=== PATIENT | female | born 1935 | race Caucasian/White ===

== ENCOUNTER → 2017-01-17 | Outpatient (CLI) | payer OTHER, MEDICARE ==
[~2017-01-17] VITALS: Ht 160 cm; Wt 53.1 kg
[~2017-01-17] MED LIST: ADULT LOW DOSE81 MG PO; ALBUTEROL SULFAT2 MG PO; ASPIR 8181 MG PO; CALCIUM 1,0001 EACH PO; CELEBREX 200 M200 M1 PO; CELEBREX 200 M200 MG PO; EXCEDRIN CAPLE1 EACH PO; FISH OIL 1,0001 EAC8 PO; FOSAMAX 70 MG T70 M1 PO; LEVOTHYROXINE0.05 MG PO; LORTAB 5 MG/5001 TA1 PO; MAXZIDE-25 MG1 EACH PO; METAXALONE400 MG PO; MOBIC7.5 MG PO; MUCINEX D ER 11 EACH PO; MUCINEX TA600 MG/TA1 PO; MUCINEX1200 MG PO; MULTIVITAMINS1 EAC7 PO; NORCO 5-325 TA1 EACH PO; PEPCID40 MG PO; POTASSIUM20 PO; PROTONIX 20 MG20 M1 PO; RELAFEN500 MG PO; SINGULAIR 10 MG10 M1 PO; TAMSULOSIN HCL0.4 M1 PO; THEOPHYLLINE S200 M1 PO; TRIAMTERENE-HC1 EAC1 PO; VALIUM2 MG PO; XOPENEX0.31 MG/3 INH; ZANTAC 150MG T150 M1 PO; ZANTAC 150MG T150 MG PO
--- NOTE | ~2017-01-17 | P ---
[facility] [place] [address] PROCEDURE REPORT Name: MARLEEN DYKES Room #: REG [facility] MMalcom.#: [id number] Admission: 01/17/17 Attend Phys: Che Gallardo DO Discharge: Date of : 39 Report #: [id number] THIS REPORT FOR: //name// CC: Che Curry MD DATE OF SERVICE: 01/17/2017 PROCEDURE: Surveillance colonoscopy. INDICATION FOR PROCEDURE: The patient has a history of adenomatous polyps and sessile, serrated adenoma 9 mm in size in the transverse colon in 2013. DESCRIPTION OF PROCEDURE: Informed consent for this procedure was obtained prior to the administration of any medication. The risks of the procedure which include bleeding, perforation, infection, complications of sedation and the possibility I could miss something have been explained to the patient and she has indicated her consent by signing. Propofol was slowly titrated before and during this procedure for patient comfort by the anesthesia service and before the EGD that preceded it. Digital rectal exam was done and no abnormalities were palpated. Then, the Qonfn colonoscope was introduced through the anal sphincter and advanced under direct visualization to the terminal ileum. Findings are noted on withdrawal of the scope. The terminal ileal mucosa appears normal. Cecum, normal mucosa. Ascending colon, normal mucosa. Retroflex view in the ascending colon did not reveal any new abnormalities. Hepatic flexure, normal mucosa. Transverse colon, normal mucosa. Splenic flexure, normal mucosa. Descending colon, normal mucosa. Sigmoid colon, normal mucosa. Rectum, normal mucosa. Retroflex view in the rectum did not reveal any other abnormalities. The scope was withdrawn. The patient went to the recovery area in stable condition. She tolerated the procedure well. IMPRESSION: Normal colonoscopic exam to the terminal ileum. No sign of recurrent polyposis. RECOMMENDATIONS: Are for her to have a followup colonoscopy in approximately 5 years. She does have a history of a 9 mm sessile, serrated adenoma. Thank you very much once again for allowing me to participate in her care. <ELECTRONICALLY SIGNED> By: Che Gallardo DO 01/17/17 1549 1252 1448 Che Gallardo DO /nt
--- NOTE | ~2017-01-17 | S ---
[facility] [place] [address] SURGICAL PATH RPT PROCEDURE Name: MARLEEN HOLDER Room #: REG RIKY M.Wesley.#: [id number] Admission: 01/17/17 Date of : 39 Discharge: Report #: [id number] Path Case #: [id number] PATHOLOGY REPORT COLLECTION DATE: 01/17/2017 RECEIVED DATE: 01/17/2017 SUBMITTING PHYS: Dr. Che Gallardo OTHER PHYS: SPECIMEN(S) RECEIVED: A.Duodenum 2nd portion B.Random gastric * * * * * * * * * * * * FINAL DIAGNOSIS: A. "Duodenum second portion", biopsy: - Small bowel/duodenal mucosa with minimal histologic alteration; no evidence of celiac sprue. B. "Random gastric", biopsy: - Gastric mucosa with mild chronic active gastritis, minimal activity. - Negative H. pylori immunohistochemical stain (block B1); control reacted appropriately. (See comment) COMMENT: Within specimen B, the pattern of inflammation is suggestive of an H. pylori infection; however, no organisms are identified on immunohistochemical staining. Correlation with clinical history, endoscopic findings and additional laboratory data is recommended. (YVETTEW:sridevi; d/t: 01/18/2017) PATHOLOGIST: Richa Palumbo M.D. REPORT ELECTRONICALLY SIGNED BY: Richa Palumbo M.D. DATE/TIME: 01/18/2017 16:51 * * * * * * * * * * * * GROSS PATHOLOGY: A. Received in formalin labeled "Marleen Holder, second portion duodenum," is a segment of goodman soft tissue measuring 0.5 cm in maximum dimension. The specimen is submitted entirely in cassette A1. B. Received in formalin labeled "Marleen Holder random gastric," are 4 segments of goodman soft tissue measuring 0.5 x 0.4 x 0.3 cm in aggregate dimensions and ranging from 0.3 to 0.4 cm in maximum dimension. The specimen is submitted entirely in cassette B1. (KAH; 01/17/2017) [address] [address] SURGICAL PATH RPT PROCEDURE Name: MARLEEN HOLDER Room #: REG [facility].#: [id number] Admission: 01/17/17 Date of : 39 Discharge: Report #: [id number] Path Case #: [id number] CLINICAL HISTORY: Pre-op diagnosis: Epigastric pain Post-op diagnosis: Gastritis INITIAL CPT CODE(S): A; 18568 B; 31101, 12195 Professional services performed by [facility] at [address], [place] [address] Technical services performed by [facility] at [address] [place] [address], [facility] [address] [address]. [facility] [address] [place] [address] PHONE: [phone] DIRECTOR: Asaf Wood M.D. * * * END OF REPORT * * *
--- NOTE | ~2017-01-17 | P ---
[facility] [place] [address] PROCEDURE REPORT Name: MARLEEN DYKES Room #: REG [facility] M.Wesley.#: [id number] Admission: 01/17/17 Attend Phys: Che Gallardo DO Discharge: Date of : 39 Report #: [id number] THIS REPORT FOR: //name// CC: Che Curry MD DATE OF SERVICE: 01/17/2017 PROCEDURE: EGD with biopsies. She is patient of Dr. Julia Curry. CHIEF COMPLAINT: Epigastric and left upper quadrant pain relieved by food intake. DESCRIPTION OF PROCEDURE: Informed consent for this procedure was obtained prior to the administration of any medication. The risks of the procedure which include bleeding, perforation, infection, complications of sedation and the possibility I could miss something have been explained to the patient and she has indicated her consent by signing. Propofol was slowly titrated before and during this procedure and the colonoscopy that followed it. The Domositen upper videoscope was introduced through the upper esophageal sphincter and advanced under direct visualization to the descending duodenum. Findings are noted on withdrawal of the scope. The duodenal mucosa appears normal throughout its entirety. Biopsies are obtained to make sure she does not have celiac sprue. Pylorus, normal mucosa. Antrum, erythematous mucosa. Body, normal mucosa. Cardia and fundus, normal mucosa. Retroflex view did not reveal any hiatal hernia. Biopsies were obtained randomly x 4 from throughout the stomach for histopathology. Scope was withdrawn into the esophagus. The Z-line is appropriately located at the top of the gastric folds and appears normal. It is located at approximately 42 cm from the incisors. The esophageal mucosa appears normal throughout its entirety. The scope was withdrawn. The patient went to the recovery area in stable condition. She tolerated the procedure well. IMPRESSION: Distal gastric erythema. Other than that, normal esophagogastroduodenoscopy to descending duodenum, biopsies are pending. RECOMMENDATIONS: To await the biopsy results. She should continue on her proton pump inhibitors for now. We will proceed with colonoscopy. Thank you very much once again for allowing me to participate in her care, [address] [address] PROCEDURE REPORT Name: MARLEEN DYKES Room #: REG YVETTEBella Swann#: [id number] Admission: 01/17/17 Attend Phys: Che Gallardo DO Discharge: Date of : 37 Report #: [id number] [place]. 1. <ELECTRONICALLY SIGNED> By: Che Gallardo DO 01/17/17 1549 1252 1444 Che Gallardo DO /nt
== END ==
LOC: GI 10:30
DX: Z12.11 Encounter for screening for malignant neoplasm of colon (principal); Z86.010 Personal history of colon polyps; K29.50 Unspecified chronic gastritis without bleeding; I10 Essential (primary) hypertension; G47.33 Obstructive sleep apnea (adult) (pediatric); Z87.891 Personal history of nicotine dependence; E03.9 Hypothyroidism, unspecified
CPT/HCPCS: 62110; 62900

== ENCOUNTER → 2017-02-15 | Outpatient (CLI) | payer OTHER, MEDICARE | LOC: NUC 12:20 | DX: M81.0 Age-related osteoporosis without current pathological fracture (principal) ==

== ENCOUNTER → 2017-03-12 | Outpatient (CLI) | payer OTHER, MEDICARE ==
[~2017-03-12] VITALS: Ht 160 cm; Wt 55.8 kg
--- NOTE | ~2017-03-12 | HPC ---
[facility] [address] [place] [address] PAIN MANAGEMENT CONSULTATION Name: MARLEEN DYKES Room #: REG [facility]..#: [id number] Admission: 03/12/17 Attend Phys: Hari Fontaine DO Discharge: Date of : 37 Report #: [id number] THIS REPORT FOR: //name// CC: Julia Fontaine The patient is a delightful 81-year-old female typically treated for lumbosacral spondylosis, SI joint dysfunction. She has done well with occasional SI joint injections; she had two in 2014, one in August of 2016. Returns to the pain clinic today noting last injection afforded as usual 80% relief for many months, pain has gradually begun to recur. Pain is primarily in the low back, exacerbated with standing and bending. She notes still a lot of gardening, with weather changes, this spring, symptoms seems to have gotten a little bit worse, rates them 2-3 on a 0-10 visual analog scale presently, but notes pain more problematic with certain positions. PHYSICAL EXAMINATION: Shows pleasant 81-year-old female, BMI is 21.8 kilograms per meter squared. Vital signs stable as noted in the EMR. Rises from chair easily. Gait is tandem. Lower extremity strength is preserved. Very tender over the SI joints with positive Charly test, positive Gaenslen's and positive distraction. 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 RECOMMENDATION: Bilateral SI joint injection under fluoroscopy. Continue physical therapy, core strengthening, activity as able. Follow up as needed. PROCEDURE NOTE: Bilateral SI joint injection under fluoroscopy. PROCEDURE NOTE: After written and informed consent was obtained including risk of infection, nerve trauma, increased pain and weakness, the patient wishes to proceed. The patient was taken to the fluoroscopy suite, placed in the prone position. The sacroiliac joint was visualized using the C-arm, turned in an oblique fashion to align the joint. The skin overlying the area was cleansed with ChloraPrep. Skin wheal with Xylocaine was raised. A 22 gauge spinal needle was inserted into the inferior aspect of the joint. A low volume extension tubing was then attached to the needle after the stylet was removed. Negative aspiration was accomplished. A 1 mL of Omnipaque was injected which showed spread within the SI joint. 40 mg triamcinolone plus 2 mL of 0.5% preservative-free bupivacaine was injected into the joint. Needle was removed. Attention was then turned to the contralateral joint which was treated in an identical fashion. After both needles were removed the prep was washed off. Two Band-Aids were applied over the puncture sites. [place] [address] PAIN MANAGEMENT CONSULTATION Name: MARLEEN DYKES Room #: REG RIKY Swann#: [id number] Admission: 03/12/17 Attend Phys: Hari Fontaine DO Discharge: Date of : 39 Report #: [id number] ambulate to the recovery room, monitored for an appropriate period of time, discharged in good and stable condition. <ELECTRONICALLY SIGNED> By: Hari Fontaine DO 03/14/17 1252 1655 2251 Hari Fontaine DO /nt
[2017-03-12 14:20] VITALS: BP 155/80
== END ==
LOC: PAIN 06:47
DX: M53.3 Sacrococcygeal disorders, not elsewhere classified (principal); Z87.891 Personal history of nicotine dependence

== ENCOUNTER → 2017-04-09 | Outpatient (CLI) | payer OTHER, MEDICARE ==
[~2017-04-09] VITALS: Ht 160 cm; Wt 55.8 kg
[2017-04-09 10:44] VITALS: BP 154/8
== END | disposition home or self-care (01) ==
LOC: PAIN 06:42
DX: M79.1 Myalgia (principal); M47.897 Other spondylosis, lumbosacral region; M53.3 Sacrococcygeal disorders, not elsewhere classified; G89.29 Other chronic pain; Z87.891 Personal history of nicotine dependence; Z88.8 Allergy status to other drugs, medicaments and biological substances; Z79.82 Long term (current) use of aspirin

== ENCOUNTER → 2018-01-04 | Outpatient (CLI) | payer OTHER, MEDICARE ==
[~2018-01-04] VITALS: Ht 160 cm; Wt 55.9 kg
[~2018-01-04] MED LIST changes: +LIPITOR10 MG PO
--- NOTE | ~2018-01-04 | HPC ---
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 Last seen in pain clinic back in March. She has done well with occasional bilateral SI joint injections for SI mediated pain. She notes last injection has afforded good relief. Pain is beginning to recur across the low back, little bit into the buttocks. Does not radiate down to the legs. Pain is exacerbated with standing and bending. PHYSICAL EXAMINATION: Shows a pleasant 82-year-old female. BMI is approximately 20 kilograms per meter squared. Vital signs are stable as noted in the EMR. Rises from a chair using armrest. She has not fallen in the past 6 months. Gait is tandem. Lower extremity strength is generally preserved. Grossly positive Charly test bilaterally. Positive Gaenslen's test. Pelvic distraction is modestly positive. Skin integument is intact. ASSESSMENT: Sacroiliac joint dysfunction by clinical exam and history. RECOMMENDATIONS: Bilateral SI joint injection under fluoroscopy. Continue core exercises. Follow up as needed. PROCEDURE: Bilateral SI joint injection under fluoroscopy. PROCEDURE NOTE: After written and informed consent was obtained including risk of infection, nerve trauma, increased pain and weakness, the patient wishes to proceed. The patient was taken to the fluoroscopy suite, placed in the prone position. The sacroiliac joint was visualized using the C-arm, turned in an oblique fashion to align the joint. The skin overlying the area was cleansed with ChloraPrep. Skin wheal with Xylocaine was raised. A 22 gauge spinal needle was inserted into the inferior aspect of the joint. A low volume extension tubing was then attached to the needle after the stylet was removed. Negative aspiration was accomplished. A 1 mL of Omnipaque was injected which showed spread within the SI joint. 40 mg triamcinolone plus 2 mL of 0.5% preservative-free bupivacaine was injected into the joint. Needle was removed. Attention was then turned to the contralateral joint which was treated in an identical fashion. After both needles were removed the prep was washed off. Two Band-Aids were applied over the puncture sites. [place] [address] PAIN MANAGEMENT CONSULTATION Name: MARLEEN DYKES Room #: [facility] [id number] Admission: 01/04/18 Attend Phys: Hari Fontaine DO Discharge: Date of : 39 Report #: [id number] ambulate to the recovery room, monitored for an appropriate period of time, discharged in good and stable condition. <ELECTRONICALLY SIGNED> By: Hari Fontaine DO 01/07/18 0809 1451 1922 Hari Fontaine DO /nt
[2018-01-04 13:59] VITALS: BP 146/73
== END | disposition home or self-care (01) ==
LOC: PAIN 06:55
DX: M53.3 Sacrococcygeal disorders, not elsewhere classified (principal); Z87.891 Personal history of nicotine dependence

== ENCOUNTER → 2020-02-25 | Outpatient (CLI) | payer OTHER, MEDICARE ==
[~2020-02-25] VITALS: Ht 160 cm; Wt 50.8 kg
[~2020-02-25] MED LIST changes: -LEVOTHYROXINE0.05 MG PO; +NORVASC5 M1 PO; +PEPCID AC20 MG PO; +SYNTHROID50 MCG PO
--- NOTE | ~2020-02-25 | P ---
[facility] [place] [address] PROCEDURE REPORT Name: MARLEEN DYKES Room #: REG [facility]#: [id number] Admission: 02/25/20 Attend Phys: Zander Woodall Discharge: Date of : 39 Report #: [id number] THIS REPORT FOR: cc: Jluia Curry MD, Jennifer S. MD McElhinney, Christian C. MD ~ CC: Zander Curry MD DATE OF SERVICE: 02/25/2020 PROCEDURE PERFORMED: Colonoscopy with biopsies. HISTORY OF PRESENT ILLNESS: The patient is an 84-year-old female who underwent a Cologuard test recently that was positive. She denies any obvious bright red blood per rectum or melena. She denies any abdominal pain. She does have a family history of colon cancer in a grandmother and an aunt. DESCRIPTION OF PROCEDURE: The risks and benefits of the procedure were explained to the patient, those risks including but not limited to bleeding, perforation and the risk of sedation. She understood these risks and gave informed consent. Sedation was given using propofol per anesthesia. Next, a digital rectal exam was initially performed, which was normal. Next, using a standard Olympus colonoscope, the scope was placed in the patient's anus and advanced under direct vision to the cecum. The overall prep was good. The cecum and ileocecal valve were normal in appearance. Ascending colon, there was a 4 mm sessile polyp; this was removed with cold forceps, otherwise normal. Transverse colon was normal. A few scattered diverticula were noted in the descending and sigmoid colon, no evidence of inflammation, otherwise normal. The rectal mucosa was normal. On retroflexion, small nonbleeding internal hemorrhoids were noted, otherwise normal colonoscopy. The scope was then withdrawn and the procedure terminated. The patient tolerated the procedure well. IMPRESSION: 1. Small colonic polyp. 2. Small internal hemorrhoids. 3. Left-sided diverticulosis. RECOMMENDATIONS: 1. Await biopsy results. 2. Repeat colonoscopy is not needed due to the patient's age. [address] [address] PROCEDURE REPORT Name: MARLEEN DYKES [facility] [id number] Admission: 02/25/20 Attend Phys: Zander Woodall Discharge: Date of : 39 Report #: [id number] Thank you for allowing me to participate in her care. By: 1050 1318 Zander Stokes MD /nt
--- NOTE | 2020-02-26 14:08 | PATH ---
[facility] [address] [place] [address] PATHOLOGY RPT PROCEDURE Name: MARLEEN HOLDER Room #: REG [facility] M.R.#: [id number] Admission: 02/25/20 Date of : 39 Discharge: Report #: [id number] Path Case #: [id number] [facility] Accession Number: [id number] . 01 Material submitted: . colon - POLYP AT ASCENDING COLON. Modifiers: ascending . 01 Clinical history: . Pre-op diagnosis: History of polyp; positive Cologuard Post-op diagnosis: Colon polyp . 02 Diagnosis: Polyp, at ascending colon, endoscopic biopsy: - Inflamed and reactive hyperplastic polyp. - Negative for dysplasia. (IUV:carol; 02/26/2020) QMS 02/26/2020 1017 Local . 02 Electronically signed: . Khushbu Velasquez MD, Pathologist NPI- [id number] . 01 Gross description: . The specimen is received in formalin, labeled "Marleen Holder, polyp at ascending colon". Received is a segment of pale goodman soft tissue measuring 0.3 cm in maximum dimensions. The specimen is submitted entirely in cassette A1. (CAA; 02/25/2020) QAC/QA 02/25/2020 1538 Local . 02 Pathologist provided ICD-10: K63.5 . 02 CPT . 881192 Specimen Comment: A courtesy copy of this report has been sent to [phone], [phone] Specimen Comment: [phone] Specimen Comment: Report sent to / DR MCCAIN Performed at: [address], [place] [id number] MD Peter Barkley MD Phone: [phone] Performed at: [address] [id number] MD Khushbu Velasquez MD Phone: [phone]
== END | disposition home or self-care (01) ==
LOC: GI 01-21 12:02
DX: R19.5 Other fecal abnormalities (principal); K51.40 Inflammatory polyps of colon without complications; K57.30 Diverticulosis of large intestine without perforation or abscess without bleeding; K64.8 Other hemorrhoids; I10 Essential (primary) hypertension; E78.00 Pure hypercholesterolemia, unspecified; R05 Cough; Z80.0 Family history of malignant neoplasm of digestive organs; Z98.890 Other specified postprocedural states; Z79.899 Other long term (current) drug therapy; Z85.6 Personal history of leukemia; Z87.891 Personal history of nicotine dependence; Z88.8 Allergy status to other drugs, medicaments and biological substances; Z11.59 Encounter for screening for other viral diseases
CPT/HCPCS: 62110; 62900